=== PATIENT | male | born 1970 | race Caucasian/White ===

== ENCOUNTER 2024-05-16 09:26 | Outpatient (CLI) | payer OTHER ==
[2024-05-16 09:42] LABS: BASOPHILS # (AUTO) 0.1 10^3/uL (0.0-0.1); BASOPHILS % (AUTO) 0.8 %; EOSINOPHILS # (AUTO) 0.3 10^3/uL (0.0-0.7); EOSINOPHILS % (AUTO) 4.1 %; HCT - HEMATOCRIT 50.7 % (42.0-52.0); HGB - HEMOGLOBIN 16.6 g/dL (14.0-18.0); LYMPHOCYTES # (AUTO) 2.7 10^3/uL (1.5-3.5); LYMPHOCYTES % (AUTO) 37.4 %; MEAN CORPUSCULAR HEMOGLOBIN 27.9 pg (27.0-31.0); MEAN CORPUSCULAR HGB CONC 32.7 g/dL (32.0-36.0); MEAN CORPUSCULAR VOLUME 85.2 fL (80.0-94.0); MEAN PLATELET VOLUME 9.6 fL (7.4-11.4); MONOCYTES # (AUTO) 0.6 10^3/uL (0.0-1.0); MONOCYTES % (AUTO) 8.7 %; NEUTROPHILS # (AUTO) 3.4 10^3/uL (1.5-6.6); NEUTROPHILS % (AUTO) 48.4 %; PLT - PLATELET COUNT 282 10^3/uL (130-450); RED BLOOD COUNT 5.95 10^6/uL (4.70-6.10); RED CELL DISTRIBUTION WIDTH 12.7 % (12.0-15.0); WHITE BLOOD COUNT 7.1 x10^3/uL (4.8-10.8)
[2024-05-16 10:04] LABS: ALBUMIN 4.7 g/dL (3.2-5.5); ALBUMIN/GLOBULIN RATIO 1.6 (1.0-2.2); ALKALINE PHOSPHATASE 84 IU/L (42-121); ALT ALANINE AMINOTRANSFERASE 23 IU/L (10-60); AST ASPARTATE AMINOTRANSFERASE 26 IU/L (10-42); BILIRUBIN,TOTAL 0.7 mg/dL (0.2-1.0); BUN - BLOOD UREA NITROGEN 13 mg/dL (6-20); CALCIUM 9.7 mg/dL (8.5-10.3); CARBON DIOXIDE - CO2 26 mmol/L (21-32); CHLORIDE 96 mmol/L (101-111); CHOL/HDL RATIO 5.5 (<5.0); CHOLESTEROL 264 mg/dL; CREATININE 0.9 mg/dL (0.6-1.3); GFR - MDRD 89 (>89); GLUCOSE 310 mg/dL (74-104); HDL CHOLESTEROL 48 mg/dL; LDL CHOLESTEROL,CALCULATED 138 mg/dL; LDL/HDL RATIO 2.9 (<3.6); POTASSIUM 3.8 mmol/L (3.5-4.5); SODIUM 131 mmol/L (135-145); TOTAL PROTEIN 7.7 g/dL (6.4-8.9); TRIGLYCERIDES 392 mg/dL (48-352); VLDL CHOLESTEROL 78 mg/dL
[2024-05-16 10:28] LABS: ESTIMATED AVERAGE GLUCOSE 306 mg/dL (70-100); HEMOGLOBIN A1c% 12.3 % (4.27-6.07)
--- NOTE | 2024-05-16 20:06 | XRAY Report ---
PROCEDURE: Ankle 3+V RT INDICATIONS: RIGHT ANKLE PAIN TECHNIQUE: 3 views of the ankle were acquired. COMPARISON: None. FINDINGS: Bones: No fractures or dislocations. Mild hindfoot joint osteoarthritic changes are seen with joint space narrowing and subchondral sclerosis. Ankle mortise is normally aligned. No suspicious bony le sions. Soft tissues: Lateral ankle soft tissue swelling is seen. No tibiotalar joint effusion. Achilles te ndon appears normal. IMPRESSION: Mild hindfoot joint osteoarthritis. No acute ankle fracture or dislocation. Ankle mortise is congruen t. Mild lateral ankle soft tissue swelling. Reviewed by: Josef Manzanares MD on 05/16/2024 8:05 PM PDT Approved by: Josef Manzanares MD on 05/16/2024 8:05 PM PDT Station ID: [id number]
== END 2024-05-16 09:27 | disposition home or self-care (01) ==
LOC: LAB 09:26
DX: E11.39 Type 2 diabetes mellitus with other diabetic ophthalmic complication (principal); I25.2 Old myocardial infarction; Z12.5 Encounter for screening for malignant neoplasm of prostate; M19.071 Primary osteoarthritis, right ankle and foot; R93.6 Abnormal findings on diagnostic imaging of limbs; R93.89 Abnormal findings on diagnostic imaging of other specified body structures
CPT/HCPCS: 36415; 80053; 80061; 83036; 83721; 84153; 85025